=== PATIENT | male | born 1980 | race Caucasian/White ===

== ENCOUNTER 2023-01-01 14:49 | Emergency (ER) | payer BC ==
[~2023-01-01] VITALS: Ht 188 cm; Wt 108.9 kg
[2023-01-01 14:50] VITALS: BP_SYST 141
[2023-01-01] MEDS ORDERED: NACL 0.9% 1,000 ML IV ONE (15:15)
[2023-01-01 15:36] LABS: BASOPHILS % (AUTO) 0.4 % (0.0-2.0); EOSINOPHILS # (AUTO) 0.1 K/uL (0.0-0.4); EOSINOPHILS % (AUTO) 1.2 % (0.0-4.0); HEMATOCRIT 48.6 % (36-54); HEMOGLOBIN 16.5 g/dL (14.0-18.0); LYMPHOCYTES % (AUTO) 27.8 % (20.5-51.5); MEAN CORPUSCULAR HEMOGLOBIN 31 pg (27-31); MEAN CORPUSCULAR HGB CONC 34 % (32-36); MEAN CORPUSCULAR VOLUME 90 fL (79.0-98.0); MONOCYTES # (AUTO) 0.5 K/uL (0.0-1.0); MONOCYTES % (AUTO) 6.5 % (1.7-9.3); NEUTROPHILS # (AUTO) 4.6 K/uL (1.8-7.7); NEUTROPHILS % (AUTO) 64.1 % (40.0-70.0); RED BLOOD CELL COUNT(AUTO) 5.39 MIL/uL (4.2-6.2); RED CELL DISTRIBUTION WIDTH 12.9 % (9.0-15.0); WHITE BLOOD COUNT (AUTO) 7.1 K/uL (4.8-10.8)
[2023-01-01 15:45] LABS: ALBUMIN 4.1 g/dL (3.4-4.8); CALCIUM 9.2 mg/dL (8.4-11.0); CREATININE 1.35 mg/dL (0.55-1.30); TOTAL BILIRUBIN 0.3 mg/dL (0.0-1.0)
[2023-01-01 16:19] LABS: PLATELET COUNT (AUTO) 84 K/uL (130-430)
[2023-01-01 17:16] VITALS: BP_SYST 141
== END 2023-01-01 17:33 | disposition home or self-care (01) ==
LOC: SED 14:49
DX: E11.65 Type 2 diabetes mellitus with hyperglycemia (principal); E86.0 Dehydration; N17.9 Acute kidney failure, unspecified; I10 Essential (primary) hypertension; E78.5 Hyperlipidemia, unspecified; Z79.899 Other long term (current) drug therapy
CPT/HCPCS: 99283; 96360; 80053; 82962; 85025; 36415; J7030